=== PATIENT | female | born 1995 | race Two or more races ===

== ENCOUNTER → 2017-05-11 | Outpatient (REF) | payer BC | LOC: M SFHCWAGY 13:51 | PROVIDERS: ATTEND Nurse Practitioner Women's Health | DX: Z12.4 Encounter for screening for malignant neoplasm of cervix (principal); Z11.3 Encounter for screening for infections with a predominantly sexual mode of transmission; Z11.4 Encounter for screening for human immunodeficiency virus [HIV] | CPT/HCPCS: 36415; 87389; 87491; 87591; G0123 ==

== ENCOUNTER → 2020-10-28 | Outpatient (CLI) | payer SELFPAY | LOC: M LABSMTC 13:16 | PROVIDERS: ATTEND Pediatrics | DX: Z20.822 Contact with and (suspected) exposure to COVID-19 (principal) ==

== ENCOUNTER → 2020-11-22 | Outpatient (CLI) | payer SELFPAY | LOC: M LABSMTC 11:00 | PROVIDERS: ATTEND Pediatrics | DX: Z20.822 Contact with and (suspected) exposure to COVID-19 (principal) ==